=== PATIENT | female | born 1935 | race Caucasian/White ===

== ENCOUNTER → 2023-10-21 19:14 | Outpatient (REF) | payer MEDICARE, SELFPAY ==
[2023-10-21 20:15] LABS: ALT (SGPT) 48 U/L (0-35); AST (SGOT) 47 U/L (14-36); Alkaline Phosphatase 136 U/L (38-126); Blood Urea Nitrogen 18 mg/dl (7-17); Calcium 10.1 mg/dl (8.4-10.2); Carbon Dioxide 25 mmol/L (22-30); Chloride 108 mmol/L (98-107); Glucose 97 mg/dl (70-99); Potassium 4.4 mmol/L (3.5-5.1); Sodium 137 mmol/L (135-145); Total Bilirubin 0.7 mg/dl (0.2-1.3); Total Cholesterol 212 mg/dl (50-199); Total Protein 7.2 g/dl (6.3-8.2); Triglyceride 59 mg/dl (10-149); Very Low Density Lipoprotein 11 mg/dl (0-30); eGFR > 60.00
[2023-10-21 20:20] LABS: % Basophils 0.4 % (0-2); % Eosinophils 1.3 % (0-6); % Immature Granulocytes 0.1 % (0-0.5); % Lymphocytes 14.8 % (20.5-51.1); % Monocytes 6.7 % (1.7-9.3); % Neutrophils 76.7 % (42.2-75.2); Absolute Eosinophils 0.1 10^3/uL (0-0.7); Absolute Monocytes 0.5 10^3/uL (0.1-0.6); Absolute Neutrophils 5.1 10^3/uL (1.4-6.5); Hematocrit 39.6 % (37.0-47.0); Hemoglobin 12.6 g/dL (12.0-16.0); Mean Corp Hgb Conc. 31.8 g/dL (33.0-37.0); Mean Corpuscular Hgb 29.6 pg (27.0-31.0); Mean Corpuscular Volume 93.2 fL (81.0-99.0); Mean Platelet Volume 9.6 fL (7.4-10.4); Nucleated Red Blood Cells % 0 %; Platelet Count 182 10^3/uL (130-400); Red Blood Cell Count 4.25 10^6/uL (4.20-5.40); Red Cell Dist. Width 14.7 % (11.5-14.5); White Blood Cell Count 6.7 10^3/uL (4.8-10.8)
[2023-10-21 20:41] LABS: HDL Cholesterol 114 mg/dl; LDL Cholesterol, Calculated 87 mg/dl
[2023-10-21 20:46] LABS: TSH 2.16 uIU/ml (0.47-4.68)
== END ==
LOC: CLAB 19:14
PROVIDERS: ATTENDING PHYSICIAN Family Medicine
DX: I10 Essential (primary) hypertension (principal); E83.52 Hypercalcemia; Z13.29 Encounter for screening for other suspected endocrine disorder; Z00.00 Encounter for general adult medical examination without abnormal findings
CPT/HCPCS: 36415; 80053; 80061; 84443; 85025

== ENCOUNTER → 2024-02-21 06:45 | Outpatient (REF) | payer MEDICARE, SELFPAY | LOC: MRI 06:45 | PROVIDERS: ATTENDING PHYSICIAN Family Medicine | DX: R41.3 Other amnesia (principal); R44.3 Hallucinations, unspecified | CPT/HCPCS: 70551 ==

== ENCOUNTER 2024-04-05 10:41 | Emergency (ER) | payer MEDICARE, SELFPAY ==
[2024-04-05 10:49] VITALS: BP 136/58
[2024-04-05 11:41] VITALS: BMI 19.3
[2024-04-05 11:46] LABS: Urine Albumin Trace (Neg - Trace); Urine Bilirubin Negative (Negative); Urine Character Clear (Clear); Urine Color Yellow; Urine Glucose Negative (Negative); Urine Ketone Negative (Negative); Urine Leukocyte 2+ (Negative); Urine Nitrite Positive (Negative); Urine Occult Blood Negative (Negative); Urine Specific Gravity 1.025 (<1.030); Urine Urobilinogen Negative (Neg - 1+)
[2024-04-05 11:50] LABS: % Basophils 0.4 % (0-2); % Eosinophils 2.5 % (0-6); % Immature Granulocytes 0.2 % (0-0.5); % Lymphocytes 18.8 % (20.5-51.1); % Monocytes 8.5 % (1.7-9.3); % Neutrophils 69.6 % (42.2-75.2); Absolute Eosinophils 0.1 10^3/uL (0-0.7); Absolute Lymphocytes 0.9 10^3/uL (1.2-3.4); Absolute Monocytes 0.4 10^3/uL (0.1-0.6); Absolute Neutrophils 3.4 10^3/uL (1.4-6.5); Hematocrit 36.4 % (37.0-47.0); Mean Corpuscular Hgb 29.5 pg (27.0-31.0); Mean Corpuscular Volume 89.4 fL (81.0-99.0); Mean Platelet Volume 9.2 fL (7.4-10.4); Nucleated Red Blood Cells % 0 %; Platelet Count 153 10^3/uL (130-400); Red Blood Cell Count 4.07 10^6/uL (4.20-5.40); Red Cell Dist. Width 14.6 % (11.5-14.5); White Blood Cell Count 4.8 10^3/uL (4.8-10.8)
--- NOTE | 2024-04-05 11:53 | ED.GENMED ---
Addendum entered and electronically signed by Tamiko English PA-C 04/07/24 10:08:
prelim urine culture e coli
initially note said pt was transferred to inpatient psych but i called the facility and they do not have her there as a patient
i called son and left message.
Original Note:
History of Present Illness
General
Chief Complaint: Change in Mental Status
Source: patient and family
Time Seen by Provider: 04/05/24 11:01
History of Present Illness
History of Present Illness:
88 year old female presents with family who states the patient has been progressively getting worse over the past several weeks. She is confused agitated and paranoid. Family has found her where she lives by herself hiding in the corner thinking
she was kidnapped. Family states that she has been seeing members of her family. This tends to get worse throughout the day. There has not been a fever. Symptoms have been worsening over months. Family doctor prescribed Remeron to help
her sleep which she has been sleeping better but symptoms have been worse. Patient realizes that something is not quite right on her behalf. She denies headache chest pain abdominal pain or breath. There has been no fever or vomiting. No urinary
symptoms. No other complaints. Family concerned about her safety at home and is requesting help with either medication or placement
Past History
Past History
ED Past Medical History: HTN
ED Past Surgical History: Appendectomy and Orthopedic
Social History
Tobacco: Non-smoker
Alcohol: None
Drug: None
Personal:
Living: alone
Employment: Retired
Family History
Family History: Hypertension
Phy Exam
Physical Exam
Physical Exam:
General: Well-appearing female no acute respiratory distress.
HEENT: Normocephalic neck is supple
Heart: Regular rate and rhythm
Lungs: Clear no wheeze
Abdomen soft nontender nondistended no guarding or rebound
Extremities: No cyanosis
Neurologic exam: Alert oriented to person place and time. No facial asymmetry or drift
Psychiatric exam: Patient admits to having paranoid thoughts such as being kidnapped. She admits to having hallucinations of which she is seeing previously people.
Course
Orders/Labs/Results
Orders:
Orders
04/05/24 11:27
CT Head W/o Iv Contrast Urgent
Comment:
Reason For Exam: confusion
04/05/24 11:36
Complete Blood Count/With Diff Urgent
Comprehensive Metabolic Panel Urgent
04/05/24 11:37
Urinalysis Reflex To Culture Urgent
Date Specimen was Collected: 04/05/24
Time Specimen was Collected: 11:31
Urine Microscopic Reflex Cult Urgent
Urine Culture Urgent
LUCIUS Source: U
Specimen Description:
Date Specimen was Collected: 04/05/24
Time Specimen was Collected: 11:31
04/05/24 11:52
Case Management Consult ONCE
Case Management Consult: Assisted Placement
Comment:
04/05/24 11:54
Crisis Consult Urgent
Reason for Consult: paranoia/hallucinations
04/05/24 15:36
Electrocardiogram (*1) Urgent
Reason for Study: Other
Other Reason for Exam: medical clearance
EKG- Treatment ONCE
04/05/24 15:40
Urinalysis Reflex To Culture Urgent
Date Specimen was Collected: 04/05/24
Time Specimen was Collected: 15:41
Abnormal Lab Results
04/05/24 04/05/24
11:36 11:37
RBC 4.07 L 10^6/uL
(4.20-5.40)
Hct 36.4 L %
(37.0-47.0)
RDW 14.6 H %
(11.5-14.5)
Absolute Lymphs (auto) 0.9 L 10^3/uL
(1.2-3.4)
Lymphocytes % 18.8 L %
(20.5-51.1)
Chloride 108 H mmol/L
(98-107)
BUN 20 H mg/dl
(7-17)
AST 41 H U/L
(14-36)
ALT 37 H U/L
(0-35)
Urine Nitrite (Reflex) Positive A
(Negative)
Leukocyte Esterase Rfl 2+ A
(Negative)
Urine WBC (Reflex) 26-30 A /HPF
(0-5)
Urine Bacteria (Reflex) Moderate A
(Negative)
04/05/24 11:36
04/05/24 11:36
Vital Signs
Initial and Last Documented VS:
Initial Vital Signs
Temp Pulse Resp BP Pulse Ox
98.0 F 66 16 136/58 98
04/05/24 10:49 04/05/24 10:49 04/05/24 10:49 04/05/24 10:49 04/05/24 10:49
Last Documented Vital Signs
Temp Pulse Resp BP Pulse Ox
98.0 F 66 16 149/64 98
04/05/24 10:49 04/05/24 10:49 04/05/24 10:49 04/05/24 14:00 04/05/24 10:49
MDM/Problems Addressed
Differential Diagnosis Includes:
Family brings patient in here for concerns about recent change in cognitive behavior paranoia delusions and hallucinations. These have been getting worse over several months but significantly worse over the past 2 weeks. Will check in for medical
problems including potential for UTI electrolyte abnormality. Will also check CT of head. Crisis was consulted as well as case management for their involvement.
*Critical Care Note
Total Time (30-74mins, 75-104mins- exclusive of procedures): Not Applicable
Update Note
Update Note:
CT head shows age-related changes. Labs reviewed without significant finding. Was in the room several times talking to patient patient's family as well as case management crisis department and psychiatry. Medically the patient is stable. There
is a contaminated urine specimen. A clean-catch is pending. EKG pending as well. Family has connection at a facility called [facility]. They plan on getting her evaluated there. From the emergency room standpoint she is
medically clear for this disposition. Family will continue to monitor her until she is goes to the clinic
ED Attending Note
-
Portions of this chart may have been created with voice recognition software.� Occasional wrong word or��sound alike� substitutions may have occurred due to the inherent limitations of voice recognition software.
Discharge Plan
Departure
Patient Disposition: Home (Routine Discharge)
Date of Disposition: 04/05/24
Time of Disposition: 15:42
Patient with high blood pressure during this ER visit?: No
Discharge Problem:
Altered mental status
Instructions: Altered Mental Status (DC)
Prescriptions:
No Action
aspirin 81 MG tablet,chewable
81 mg PO DAILY
metoprolol tartrate 25 MG tablet
25 mg PO BID
polyethylene glycol 3350 17 GRAMS powder in packet
17 grams PO DAILYPRN PRN (Reason: constipation) 0RF
amlodipine 10 MG tablet
10 mg PO DAILY Qty: 30 0RF
sulfamethoxazole-trimethoprim 1 TABLET tablet
1 tab PO BID Qty: 14 0RF
Referrals:
Milena Hughes MD [Family Provider] -
Activity Restrictions/Additional Instructions:
Your evaluated here for change in mental status. You are medically clear for evaluation at the [facility]. Please return here if needed
Interventions
Interventions:
*Risk Screen - Suicide Last Done: 04/05/24 10:42
*General Assessment Last Done: 04/05/24 11:41
*Neglect/Abuse Screening Last Done: 04/05/24 10:49
ED- Fall Risk Assessment Last Done: 04/05/24 11:41
*ED COVID-19 Vaccine History Last Done: 04/05/24 11:41
ED- Neurological Assessment Last Done: 04/05/24 11:41
ED- Cardiac Assessment Last Done: 04/05/24 11:41
ED Swallowing Screen Last Done: 04/05/24 11:41
Discharge Date and Time
Print Language: ARMENIAN
[2024-04-05 11:58] VITALS: BP 142/65
[2024-04-05 11:59] LABS: Urine Bacteria Moderate (Negative); Urine Red Blood Cell 0-2 /HPF (0-2)
[2024-04-05 12:00] VITALS: BP 144/58
[2024-04-05 12:00] LABS: Urine Mucus Moderate; Urine White Cell 26-30 /HPF (0-5)
[2024-04-05 12:01] LABS: Urine Squamous Cell 26-30 /LPF (Few)
[2024-04-05 12:13] LABS: ALT (SGPT) 37 U/L (0-35); AST (SGOT) 41 U/L (14-36); Albumin 3.8 g/dl (3.5-5.0); Alkaline Phosphatase 113 U/L (38-126); Blood Urea Nitrogen 20 mg/dl (7-17); Carbon Dioxide 25 mmol/L (22-30); Chloride 108 mmol/L (98-107); Estimated Creatinine Clearance 32 ml/min; Glucose 93 mg/dl (70-99); Potassium 4.1 mmol/L (3.5-5.1); Sodium 143 mmol/L (135-145); Total Bilirubin 0.6 mg/dl (0.2-1.3); Total Protein 6.5 g/dl (6.3-8.2); eGFR > 60.00
[2024-04-05 13:46] VITALS: BP 144/64
[2024-04-05 14:00] VITALS: BP 149/64
--- NOTE | 2024-04-05 14:26 | CM ---
CM following re: discharge planning.
CM consulted to assist the pt with [facility] placement.
Reviewed pt's chart, met with pt. pt's daughter Carol and daughter in law Cecilia at bedside.
Pt is an 88 year old female, arrived to ED with primary concerns of increased hallucination, both VH and AH, increased agitation, sundowning symptoms. Pt reports she lives alone in a 2SH, 1 steps to enter, has 3 supportive children. Pt reports she
is independent with functional ability, does not use any mobile devices. Pt stated her family helps with shopping, daughter Carol lives next door, son has POA.
Pt's daughter Carol and daughter in Law Cecilia described pt's behavior as verbally and physically aggressive. CM explained to pt's family options of treatment: inpatient geriatric psychiatric unit and or outpatient at home with new prescribed
medications. pt's family brought their concerns regarding pt lives alone and she needs help at home. CM explained that family can hire private duty caregiver services, increase family support or to apply for waiver community based services. pt's
daughter stated that pt is on the process of obtaining Medicaid in [place].
Pt's family requested [facility] in [place] and CM explained that [facility] is inpatient psychiatric hospital for dual diagnosis treatment.
D/C plan: most likely home with increased family support and to follow up with [facility] office in [facility] regarding Medicaid application and obtaining waiver community based services. Family to transport.
--- NOTE | 2024-04-05 15:48 | CON.MD ---
Consultation - Medical
-
patient seen chart reviewed. d and d in law at bedside. the patient is an 88 year old woman with some degree of memory impairment (she knew the month but thought it was '1950 something', knew the 'titus with the orange hair' was running for
president). she was brought here by family for change in mental status. she has been for the past several months been hearing and seeing things and is very fearful. the hallucinations take the form of people. she has been so upset she has thrown
things at them and has hidden under the table to protect herself. she was notably quite pleasant today when i spoke to her. she is most fearful at home in the evening. she up until now has been able to care for herself at home. family takes her
shopping. she can prepare simple food. she has lost some weight since (bmi 19.3) but prior had been eating well. her pcp prescribed remeron which did help w sleep and appetite but not w hallucinations. the patient does have hx of macular
degeneration which can cause visual dozier but not generally auditory. the patient denies that she is depressed. she is not having suicidal thoughts. she just wants this to stop as it scares her. see med hx below
past psych hx none prior to recently. she was seen in er in february for similar.
medical hx family reports patient has been remarkably healthy. she has macular degeneration. she has hx hypertension takes metoprolol. cbc okay cmp w very minor elevation of liver enzymes (one or two points above nl) ecg pending. repeat ua
pending as original not a clean catch. cat scan with mild atrophy. mri done in feb when she presented was also without acute findings bp 149/64 pulse 64 afebrile
fh none
substance abuse none
social resides by self has supportive kids and grandkids
mse alert oriented to person place 'april something. no unusual behaviors speech and thought process nl affect appropriate mood anxious + hallucinations both visual and auditory. intelligence average but cognitive impairment insight
judgment fair
dx dementia with hallucinations / paranoia
recommendations patient has been medically cleared pending ecg and clean catch urine. would recommend psychiatric hospitalization on [facility] psych unit. . family has a contact at [facility]. that contact has recommended that
patient come to [place] for evaluation and patient is willing to go. workup from er will be faxed to [phone] gustavo in admissions and patient will be dc from er.
[2024-04-05 15:56] LABS: Urine Albumin Negative (Neg - Trace); Urine Bilirubin Negative (Negative); Urine Character Clear (Clear); Urine Color Yellow; Urine Glucose Negative (Negative); Urine Ketone Negative (Negative); Urine Leukocyte 1+ (Negative); Urine Nitrite Negative (Negative); Urine Occult Blood Negative (Negative); Urine Urobilinogen Negative (Neg - 1+)
[2024-04-05 16:13] LABS: Urine Bacteria Many (Negative); Urine Red Blood Cell 0-2 /HPF (0-2)
--- NOTE | 2024-04-09 10:39 | CM ---
Addendum entered by Garbiella Brown 04/09/24 11:26:
TC from daughter Karin, asking for information to be faxed. (Carol asked her to call)
CM explained to daughter, permission is needed from from the contact on the chart/Scarlet Frazier will contact her brother. I explained Facility has not been able to verify patient is coming in today for eval. Explained to daughter this fax number is
for [facility] and if son gives permission I will fax to the fax number listed in MD note. ([facility])
Original Note:
TC from ED stating daughter Carol called [phone] stating patient has an appointment at [facility] today and clinicals were not received.
Fax number in MD note [phone] (unable to verify if clinicals were faxed)
CM contacted [facility]- [phone] and [phone], spoke with multiple representatives and they cannot find patient on appointments for today. They stated they are not aware of an appointment of familiar with the patient.
Left VM for daughter Carol, await TCB.
Left VM for son Matthew, left VM.
== END 2024-04-05 16:18 | disposition home or self-care (01) ==
LOC: EMR 10:41
PROVIDERS: Physician Assistant; EMERGENCY PHYSICIAN Emergency Medicine; FAMILY PHYSICIAN Family Medicine; OTHER PHYSICIAN Psychiatry & Neurology Psychiatry
DX: R41.82 Altered mental status, unspecified (principal)
CPT/HCPCS: 99285; 70450; 80053; 81003; 81015; 85025; 87086; 87088; 87186; 93005